=== PATIENT | female | born 1940 ===

== ENCOUNTER 2025-05-07 14:35 | Outpatient (AMB) | payer OTHER, SELFPAY ==
--- NOTE | 2025-05-07 14:40 | MHC.OFFVIS ---
Intake Visit Reasons: 6m AD Reinstatement Clerk Required: Yes Reinstatement Clerk Services: Reinstatement Clerk Offered & Declined (Family will translate) Accompanied by: Daughter Allergies No Known Allergies Allergy (Verified 05/07/25 14:45) Medication List - Last Reconciled 05/07/25 by Natalee Nesbitt CNP amlodipine 2.5 mg PO DAILY levothyroxine 75 mcg PO QAM losartan 25 mg PO DAILY omeprazole 20 mg PO QAM quetiapine 50 mg PO BID HPI Comments Details: 85-year-old woman with dementia and related behavioral disorder was here with her daughter. She was doing okay. Memory was about the same. She could be forgetful at times, but information sometimes came back to her after some time. She enjoyed watching [place] soap operas and was able to follow along. She was living alone, but her children stayed with her and prepared her meals. Walking with walker, no falls. Mood was so-so. Her son (who was her youngest child) passed about 1 month ago. Sleep was okay. PENDING SALE TO [facility] Medical History (Updated 05/07/25 @ 14:44 by Natalee Nesbitt CNP) Multifactorial gait disorder Alzheimer disease Review of Systems Const Denies chills, Denies daytime sleepiness, Denies difficulty sleeping, Denies fatigue, Denies fever(s), Denies frequent falls, Denies headache(s), Denies increased appetite, Denies poor appetite, Denies snoring, Denies weakness, Denies weight gain and Denies weight loss Eyes Denies loss of vision ENT Denies vertigo, Denies dizziness and Denies headache(s) Card Denies chest pain at rest, Denies chest pain with activity, Denies syncope, Denies leg edema and Denies palpitations Resp Denies snoring GI Denies constipation, Denies heartburn, Denies diarrhea and Denies nausea Denies urinary frequency, Denies urinary incontinence and Denies urinary urgency Musc Denies abnormal gait, Denies numbness and Denies tingling Skin/Breast Denies dry skin and Denies rash Neuro Denies abnormal gait, Denies vertigo, Denies dizziness, Denies syncope, Denies frequent falls, Denies headache(s), Denies lack of coordination, Denies loss of vision, Reports memory loss, Denies numbness, Denies restless legs, Denies seizure-like activity, Denies tingling, Denies paresthesias, Denies tremor(s) and Denies weakness Psych Denies anxiety, Denies depression, Reports auditory hallucinations, Reports memory loss, Reports visual hallucinations and Denies suicidal ideation Endo Denies fatigue and Denies palpitations Physical Exam Const Other: General Appearance:? normal, in no acute distress. Skin:? no rashes, no significant birthmarks. Heart:? S1, S2 normal, no murmurs. Lungs:? clear anteriorly and posteriorly. Extremities:? no edema. Psych:? alert, cooperative with exam. Neuro Other: Mental Status:?Alert and awake, understands and responds in [place]. She was able to tell me her age after a few minutes. She was able to tell me her birthday. Cranial Nerves:?Pupils are equal, round and reactive to light. External occular muscles are intact. Visual michel are full. Face is symmetrical. Facial sensations are normal. Tongue is midline. Palate elevates symmetrically. Shoulder shrugging is normal. Hearing to bedside conversation is normal. Motor Examination:?DTRs trace. Sensory Exam:?....? Coordination:?No ataxia,?no titubation.? Gait Exam: Stooped posture with walker. Cerebellar Signs:?[id number] is okay. Extrapyramidal System:?No tremor, rigidity with normal facial expressions.? Pronator Drift:?Not present.? Involuntary Movements:?Fine tremors of the outstretched hands. Speech:?Normal.? Assessment & Plan Assessment & Plan (1) Alzheimer disease: Code(s): G30.9 - Alzheimer's disease, unspecified; F02.80 - Dementia in other diseases classified elsewhere, unspecified severity, without behavioral disturbance, psychotic disturbance, mood disturbance, and anxiety Category: Medical Plan: Continue quetiapine 50mg 1 tablet in the evening and 1 tablet at bedtime. (2) Dementia with behavioral disturbance: Code(s): F03.918 - Unspecified dementia, unspecified severity, with other behavioral disturbance Category: Medical (3) Multifactorial gait disorder: Code(s): R26.89 - Other abnormalities of gait and mobility Category: Medical Plan: Continue to use walker. Plan . Medications: New quetiapine 50 mg orally 1 tablet in evening and 1 tablet at bedtime; 60 tabs 5RF 30 days Coding Level of Care Code Est Pt Level 4 (75097) Diagnoses Alzheimer disease G30.9; F02.80 Dementia with behavioral disturbance F03.918 Multifactorial gait disorder R26.89
--- OUTSIDE RECORDS SUMMARY | 2025-05-07 17:51 | XMS_ITS | Clinical Summary ---
Author Organization 175 [facility] Address [address] [place] [address] Phone Care Team Providers Care Vegetable Cook Name Role Phone Haleigh Delacruz MD Primary Care Pr ovider Allergies Active Allergy Reactions Criticality Noted Date Comments House Dust 01/25/2023 Losartan Numbness 03/13/2025 In her mouth Other 01/25/2023 SEASONAL ALLERGIES Medications QUEtiapine (SEROquel) 25 mg tablet Take 2 Tablets by mouth at bedtime. 4 Active brimonidine (ALPHAGAN) 0.2 % ophthalmic solution 1 Drop 3 times daily. Active polyvinyl alcohol (ARTIFICIAL TEARS) 1.4 % ophthalmic solution Place 1 Drop into both eyes as needed (dry eye) for up to 30 days. 8 Active ammonium lactate (LAC-HYDRIN) 12 % lotionIndications: Dry skin Apply topically 1 (one) time each day if needed for dry skin. 400 g 1 4 Active ketoconazole (NIZORAL) 2 % cream Apply topically 1 (one) time each day. 60 g 2 5 Active levothyroxine (SYNTHROID, LEVOTHROID) 75 mcg tabletIndications: Acquired hypothyroidism Take 1 tablet (75 mcg total) by mouth 1 (one) time each day before breakfast. 90 each 1 5 05/27/20 25 Active amLODIPine (NORVASC) 2.5 mg tablet Take 1 tablet (2.5 mg total) by mouth 1 (one) time each day. 90 tablet 1 5 Active naproxen (NAPROSYN) 250 mg tablet Take 1 tablet (250 mg total) by mouth 1 (one) time each day if needed for mild pain. 90 tablet 5 Active omeprazole (PriLOSEC) [address] capsule TOME 1 CAPSULA POR VIA ORAL TODOS [place] TAKE 30 MINUTES BEFORE BREAKFAST ON EMPTY STOMACH 30 capsule 5 5 Active Active Problems Problem Noted Date Diagnosed Date Primary osteoarthritis of right shoulder 025 Normocytic anemia 09/16/2024 Assessment & Plan (04/24/2025 1:09 PM EDT): Will update labs Likely due to her chronic disease Orders: CBC and differential; Future Ferritin; Future Iron and TIBC; Future Vitamin B12; Future Insomnia due to medical condition 08/23/2024 Assessment & Plan (08/23/2024 2:49 PM EST): Well controlled. 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 Do not crush or chew. Anxiety 08/08/2023 Glaucoma 08/08/2023 Rotator cuff disorder, left 12/16/2021 Lumbar degenerative disc disease 12/16/2021 Vitamin D deficiency 01/18/2018 Assessment & Plan (08/23/2024 2:49 PM EST): Continue vitamin D daily Prediabetes 07/01/2014 Assessment & Plan (08/23/2024 2:49 PM EST): Last A1c was 5.9% BMI is normal Orders: Comprehensive metabolic panel; Future Hemoglobin A1c; Future HTN (hypertension) 06/24/2014 Assessment & Plan (04/24/2025 1:09 PM EDT): Well controlled. Continue amlodipine 2.5mg daily Assessment & Plan (08/23/2024 2:49 PM EST): Stable. Continue losartan Orders: losartan (COZAAR) 25 mg tablet; Take 1 tablet (25 mg total) by mouth 1 (one) time each day. TAKE 1 TABLET BY MOUTH DAILY Hyperlipidemia 06/24/2014 Assessment & Plan (08/23/2024 2:49 PM EST): No longer on statin. See HPI. Will update labs Orders: Lipid panel with reflex to direct LDL; Future Hemoglobin A1c; Future Hypothyroidism 06/24/2014 Assessment & Plan (08/23/2024 2:49 PM EST): Last TSH wnl in Jul 2023. Will update labs. Continue current dose of levothyroxine Orders: Thyroid stimulating hormone with reflex to free t4 and free t3; Future levothyroxine (SYNTHROID, LEVOTHROID) 75 mcg tablet; Take 1 tablet (75 mcg total) by mouth 1 (one) time each day before breakfast. Osteoarthritis 06/24/2014 Encounters Date Type Department Care Team Description 04/25/2025 Telephone Adult Medicine [address] [phone] Kasie Loredo MA 04/24/2025 1:27 PM EDT - 04/24/2025 11:59 PM EDT Hospital Encounter [address] [phone] Chronic right shoulder pain Discharge Disposition: Home or Self Care 04/24/2025 12:30 PM EDT Office Visit Adult Medicine [address] [phone] Haleigh Delacruz MD Primary hypertension (Primary Dx); Need for tetanus, diphtheria, and acellular pertussis (Tdap) vaccine; Chronic right shoulder pain; Normocytic anemia 03/13/2025 4:00 PM EDT Office Visit Adult Medicine [address] [phone] Sonia Marinelli PA Primary hypertension (Primary Dx); Hypothyroidism, unspecified type; Mixed hyperlipidemia; Prediabetes; Insomnia due to medical condition; 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 ([facility] V24, [facility] V28); Anxiety; Degeneration of intervertebral disc of lumbar region with discogenic back pain and lower extremity pain 03/13/[address] [phone] Sonia Marinelli PA 02/12/2025 3:00 PM EDT Office Visit Orthopedic Surgery - [address] [phone] Tamir Shabazz DPM Pain in both feet (Primary Dx); Arthritis of both feet; PAD (peripheral artery disease) ([facility] V24); Difficulty walking; Ulcer of toe of right foot, with fat layer exposed ([facility] V24, [facility] V28) from Last 3 Months Immunizations Name Administration Dates Next Due COVID-19 Seasonal (Novavax) 12yo and older 05/28/2024 Influenza Quadravalent, 0.5m l (Fluad) 65yo and older 05/28/2024,05/31/2023,08/16/2022 Influenza trivalent, 0.5mL ( Fluad) 65yo and older 07/12/2017 Influenza trivalent, 0.5mL ( Fluzone High-dose) 65yo and older 05/31/2023,06/15/2021,05/20/2020,08/01,07/26/2018,07/30/2016,07/12/2015 Influenza trivalent, with pr eservative (Fluzone; Afluria) 6mo and older 06/18/2014,08/04/2010 Moderna SARS-CoV-2 COVID-19, mRNA, LNP-S, preservative free 08/25/2021 Pneumococcal conjugate 13 va lent (Prevnar 13, PCV13) 2mo and older 01/08/2016 Pneumococcal polysaccharide 23 valent (Pneumovax 23) 2yo and older 12/08/2014 Tdap Tetanus diptheria acell ular pertussis (Boostrix; Adacel) 7yo and older 04/24/2025,12/08/2014 Zoster Live 12/25/2014 Surgical History Surgery Date Site/Laterality Comments OOPHORECTOMY PROCEDURE: HISTORICAL OOPHORECTOMY CHOLECYSTECTOMY PROCEDURE: HISTORICAL CHOLECYSTECTOMY Medical History Medical History Date Comments Vitamin D deficiency 01/18/2018 DX:Vitamin D deficiency Hypertension Osteoarthritis of right knee Family History Medical History Relation Name Comments Hypertension Brother Prostate cancer Father Diabetes Mother Other: family his of diabetes Other Hypertension Sister 1 Relation Name Status Comments Brother Father Mother Other Sister 1 Sister 2 Alive Social History Tobacco Use Types Packs/Day Years Used Date Smoking Tobacco: Former Smokeless Tobacco: Never Alcohol Use Standard Drinks/Week Comments No 0 (1 standard drink = 0.6 oz pur e alcohol) Comments Unknown Sex and Gender Information Value Date Recorded Sex Assigned at Not on file Legal Sex Female 5:07 PM EST Gender Identity Not on file Sexual Orientation Not on file Obstetrics History Last Filed Vital Signs Vital Sign Reading Time Taken Comments Blood Pressure 124/68 04/24/2025 12:21 PM EDT Pulse 66 04/24/2025 12:21 PM EDT Temperature 36.4 C (97.5 F) 04/24/2025 12:21 PM EDT Respiratory Rate 14 03/13/2025 3:18 PM EDT Oxygen Saturation 97% 03/13/2025 3:18 PM EDT Inhaled Oxygen Concentration - - Weight 44.9 kg (99 lb) 04/24/2025 12:21 PM EDT Height 137 cm (4' 5.94 ) 04/24/2025 12:21 PM EDT Body Mass Index 23.93 04/24/2025 12:21 PM EDT Plan of Treatment Upcoming Encounters Date Type Department Care Team (Late st Contact Info) Description 05/15/2025 1:45 PM EDT Office Visit Orthopedic Surgery - [place] [address] [phone] Tamir Shabazz, KEISHA 175 [facility] Naun [address] [place] [phone] 09/03/2025 1:30 PM EST Office Visit Adult Medicine [facility] [address] [place], [place] [phone] Haleigh Delacruz MD [address] [place], [place] 09/10/2025 3:00 PM EST Office Visit Gastroenterology - [place] [address] 175 [facility] [address] [place] [phone] Domonique Sinclair, STEVE [address] [facility] [address] [place] [address] Health Maintenance Due Date Last Done Comments Zoster Vaccines (2 of 3) 02/19/2015 12/25/2014 RSV Immunization Adult Patients (1 - 1-dose 75+ series) 2017 Social Influencers of Health Screening 07/27/2022 Depression Screening 08/28/2024 Falls Risk Assessment 01/10/2025 01/11/2024 Medicare Annual Wellness Visit 01/10/2025 01/11/2024 COVID-19 Vaccine ( season) 2025 05/28/2024, 08/25/2021, 12/29/2020, Additional history exists Influenza Vaccine (#1) 2025 , 05/31/2023, 05/31/2023, Additional history exists Hypertension/CHF/CAD Annual BMP Blood Test 03/13/2026 03/13/2025, 09/09/2024, 01/08/2024, Additional history exists Cholesterol Screening (Lipid Panel) 09/09/2029 09/09/2024, 01/08/2024, 01/08/2024 Osteoporosis Screening (Bone Density Screening) 12/03/2029 12/03/2024, 11/05/2019 DTaP,Tdap,and Td Vaccines (3 - Td or Tdap) 04/24/2035 04/24/2025, 12/08/2014 Pneumococcal Vaccine: 50+ Years Completed 01/08/2016, 12/08/2014 HIB Vaccines Aged Out No longer eligi ble based on patient's age to complete this topic HPV Vaccines Aged Out No longer eligi ble based on patient's age to complete this topic Hepatitis A Vaccines Aged Out No long er eligible based on patient's age to complete this topic Hepatitis B Vaccines Aged Out No long er eligible based on patient's age to complete this topic IPV Vaccines Aged Out No longer eligi ble based on patient's age to complete this topic MMR Vaccines Aged Out No longer eligi ble based on patient's age to complete this topic Meningococcal ACWY Vaccine Aged Out N o longer eligible based on patient's age to complete this topic Meningococcal B Vaccine Aged Out No l onger eligible based on patient's age to complete this topic RSV Immunization Patients Under 20 months Aged Out No longer eligible based on patient's age to complete this topic Varicella Vaccines Aged Out No longer eligible based on patient's age to complete this topic Procedures Procedure Name Priority Date/Time Associated Diagnosis Comments XR SHOULDER 2+ VIEWS RIGHT Routine 04/24/2025 1:36 PM EDT Chronic right shoulder pain CBC WITH AUTO DIFFERENTIAL Routine 04/24/2025 1:24 PM EDT Normocytic anemia CBC AND DIFFERENTIAL Routine 04/24/2025 1:24 PM EDT Normocytic anemia FERRITIN Routine 04/24/2025 1:24 PM EDT Normocytic anemia IRON AND TIBC Routine 04/24/2025 1:24 PM EDT Normocytic anemia VITAMIN B12 Routine 04/24/2025 1:24 PM EDT Normocytic anemia BASIC METABOLIC PANEL Routine 03/13/2025 3:55 PM EDT Primary hypertension HEMOGLOBIN A1C Routine 03/13/2025 3:55 PM EDT Prediabetes THYROID STIMULATING HORMONE WITH REFLEX TO FREE T4 AND FREE T3 Routine 03/13/2025 3:55 PM EDT Hypothyroidism, unspecified type BD BONE DENSITY DXA AXIAL SKELETON Routine 12/03/2024 2:25 PM EDT Screening for osteoporosis LIPID PANEL WITH REFLEX TO DIRECT LDL Routine 09/09/2024 10:42 AM EST Mixed hyperlipidemia from Last 3 Months or Most Recently Relevant to Health Maintenance Results * XR Shoulder 2+ Views Right (04/24/2025 1:36 PM EDT) Anatomical Region Laterality Modality Upper Extremities, Shoulder Right Radi ographic Imaging 04/25/2025 1:36 PM EDT Impressions 04/25/2025 1:40 PM EDT Mildly limited exam. Mild degenerative changes. POS - [id number] -------- FINAL REPORT -------- Dictated By: Chikis Watkins Dictated Date: 04/25/2025 13:36 ET Assigned Physician: Chikis Watkins Reviewed and Electronically Signed By: Chikis Watkins Signed Date: 04/25/2025 13:40 ET Workstation ID: [id number] Transcribed By: Self Edit Transcribed Date: 04/25/2025 13:36 ET Narrative 04/25/2025 1:40 PM EDT EXAM: Right shoulder x-ray HISTORY: Right shoulder pain. COMPARISON: 11/02/2018 FINDINGS: 4 views performed. Limitations in patient positioning due to patient kyphosis. Images obtained are the best possible. Mild degenerative changes appear present at the acromioclavicular joint. No appreciable degenerative changes at the glenohumeral joint. Apparent narrowing of the shoulder outlet. Spurring and cystic change involving the greater tuberosity. No acute fracture or dislocation detected. No destructive bone lesion. No soft tissue calcifications. Procedure Note Chikis Watkins MD - 04/25/2025 EXAM: Right shoulder x-ray HISTORY: Right shoulder pain. COMPARISON: 11/02/2018 FINDINGS: 4 views performed. Limitations in patient positioning due to patient kyphosis. Imagesobtained are the best possible. Mild degenerative changes appear present at the acromioclavicular joint.No appreciable degenerative changes at the glenohumeral joint. Apparentnarrowing of the shoulder outlet. Spurring and cystic change involving thegreater tuberosity. No acute fracture or dislocation detected. Nodestructive bone lesion. No soft tissue calcifications. IMPRESSION: Mildly limited exam. Mild degenerative changes. POS - [id number] -------- FINAL REPORT -------- Dictated By: Chikis Watkins Dictated Date: 04/25/2025 13:36 ET Assigned Physician: Chikis Watkins Reviewed and Electronically Signed By: Chikis Watkins Signed Date: 04/25/2025 13:40 ET Workstation ID: [id number] Transcribed By: Self Edit Transcribed Date: 04/25/2025 13:36 ET Haleigh Delacruz MD IMG XR PROCEDURE S Final Result * (ABNORMAL) CBC auto differential (04/24/2025 1:24 PM EDT) WBC 5.6 4.8 - 10.8 K/mcL LAB HEMETOLOGY METHOD 04/24/2025 4:50 PM EDT [facility] RBC 4.00 3.80 - 4.80 M/mcL LAB HEMETOLOGY METHOD 04/24/2025 4:50 PM EDT [facility] Hemoglobin 11.2(L) 11.5 - 16.0 g/dL LAB HEMETOLOGY METHOD 04/24/2025 4:50 PM EDT [facility] Hematocrit 36.5 35.0 - 47.0 % LAB HEMETOLOGY METHOD 04/24/2025 4:50 PM EDT [facility] MCV 90.3 79.0 - 98.0 FL LAB HEMETOLOGY METHOD 04/24/2025 4:50 PM EDT [facility] MCH 27.7 27.0 - 32.0 pcg LAB HEMETOLOGY METHOD 04/24/2025 4:50 PM EDT [facility] MCHC 30.7(L) 32.0 - 37.0 g/dL LAB HEMETOLOGY METHOD 04/24/2025 4:50 PM EDT [facility] RDW 13.9 11.0 - 15.0 % LAB HEMETOLOGY METHOD 04/24/2025 4:50 PM EDT [facility] Platelets 211 130 - 400 K/mcL LAB HEMETOLOGY METHOD 04/24/2025 4:50 PM EDT [facility] MPV 11.5(H) 7.0 - 11.0 FL LAB HEMETOLOGY METHOD 04/24/2025 4:50 PM EDT [facility] NRBC 0.0 <1.0 % LAB HEMETOLOGY METHOD 04/24/2025 4:50 PM EDT [facility] NRBC Absolute 0.00 <0.10 K/mcL LAB HEMETOLOGY METHOD 04/24/2025 4:50 PM EDT [facility] Neutrophils Relative 53.8 % LAB HEMETOLOGY METHOD 04/24/2025 4:50 PM EDT [facility] Lymphocytes Relative 34.4 % LAB HEMETOLOGY METHOD 04/24/2025 4:50 PM EDT [facility] Monocytes Relative 10.3 % LAB HEMETOLOGY METHOD 04/24/2025 4:50 PM EDT [facility] Eosinophils Relative 1.1 % LAB HEMETOLOGY METHOD 04/24/2025 4:50 PM EDT [facility] Basophils Relative 0.2 % LAB HEMETOLOGY METHOD 04/24/2025 4:50 PM EDT [facility] Immature Granulocytes Relative 0.2 % LAB HEMETOLOGY METHOD 04/24/2025 4:50 PM EDT [facility] Neutrophils Absolute 2.99 1.50 - 7.00 K/mcL LAB HEMETOLOGY METHOD 04/24/2025 4:50 PM EDT [facility] Lymphocytes Absolute 1.91 1.00 - 5.00 K/mcL LAB HEMETOLOGY METHOD 04/24/2025 4:50 PM EDT [facility] Monocytes Absolute 0.57 0.20 - 1.00 K/[facility] LAB HEMETOLOGY METHOD 04/24/2025 4:50 PM EDT [facility] Eosinophils Absolute 0.06 0.00 - 0.50 K/[facility] LAB HEMETOLOGY METHOD 04/24/2025 4:50 PM EDT [facility] Basophils Absolute 0.01 0.00 - 0.20 K/[facility] LAB HEMETOLOGY METHOD 04/24/2025 4:50 PM EDT [facility] Immature Granulocytes Absolute 0.01 0.00 - 0.03 K/[facility] LAB HEMETOLOGY METHOD 04/24/2025 4:50 PM EDT [facility] Blood Venous blood specimen / Unknown Venipuncture / Unknown 04/24/2025 1:24 PM EDT 04/24/2025 1:24 PM EDT Haleigh Delacruz MD LAB BLOOD ORDERA BLES Final Result [facility] [address] [place] [address], * Iron and TIBC (04/24/2025 1:24 PM EDT) Iron 60 40 - 150 mcg/dL LAB CHEMISTRY METHOD 04/24/2025 5:43 PM EDT [facility] TIBC 331 250 - 450 mcg/dL LAB CHEMISTRY METHOD 04/24/2025 5:43 PM EDT [facility] Iron Saturation 18 15 - 50 % LAB CHEMISTRY METHOD 04/24/2025 5:43 PM EDT [facility] Blood Venous blood specimen / Unknown Venipuncture / Unknown 04/24/2025 1:24 PM EDT 04/24/2025 1:24 PM EDT Haleigh Delacruz MD LAB BLOOD ORDERA BLES Final Result [facility] [address] [place] [address], [place] [phone] * Ferritin (04/24/2025 1:24 PM EDT) [facility] Ferritin 20 8 - 252 ng/mL LAB CHEMISTRY METHOD 04/24/2025 5:43 PM EDT [facility] Blood Venous blood specimen / Unknown Venipuncture / Unknown 04/24/2025 1:24 PM EDT 04/24/2025 1:24 PM EDT Haleigh Delacruz MD LAB BLOOD ORDERA BLES Final Result Performing Organization Address City/[facility]/ZIP Co de Phone Number [facility] [address] [place] [address], [place] [phone] * Vitamin B12 (04/24/2025 1:24 PM EDT) [facility] Vitamin B-12 408 250 - 900 pcg/mL LAB CHEMISTRY METHOD 04/24/2025 5:43 PM EDT [facility] Blood Venous blood specimen / Unknown Venipuncture / Unknown 04/24/2025 1:24 PM EDT 04/24/2025 1:24 PM EDT Haleigh Delacruz MD LAB BLOOD ORDERA BLES Final Result Performing Organization Address City/[facility]/ZIP Co de Phone Number [facility] [address] [place] [address], [place] [phone] * Thyroid stimulating hormone with reflex to free t4 and free t3 (03/13/2025 3:55 PM EDT) [facility] TSH 0.98 0.40 - 4.00 mcIU/mL LAB CHEMISTRY METHOD 03/13/2025 7:37 PM EDT [facility] Blood Venous blood specimen / Unknown Venipuncture / Unknown 03/13/2025 3:55 PM EDT 03/13/2025 3:55 PM EDT us Sonia SERRANO LAB BLOOD ORDERABLES Final Re sult Performing Organization Address [facility]/ZIP Co de Phone Number [facility] [address] [place] [address], [place] [phone] * Hemoglobin A1c (03/13/2025 3:55 PM EDT) [facility] Hemoglobin A1C 5.9 <6.5 % LAB CHEMISTRY METHOD 03/13/2025 9:42 PM EDT [facility] Mean Bld Glu Estim. 123 mg/dL LAB CHEMISTRY METHOD 03/13/2025 9:42 PM EDT [facility] Blood Venous blood specimen / Unknown Venipuncture / Unknown 03/13/2025 3:55 PM EDT 03/13/2025 3:55 PM EDT us Sonia SERRANO LAB BLOOD ORDERABLES Final Re sult Performing Organization Address [facility]/ZIP Co de Phone Number [facility] [address] [place] [address], [place] [phone] * (ABNORMAL) Basic metabolic panel (03/13/2025 3:55 PM EDT) [facility] Sodium 141 133 - 145 mmol/L LAB CHEMISTRY METHOD 03/13/2025 7:13 PM EDT [facility] Potassium 4.5 3.5 - 5.5 mmol/L LAB CHEMISTRY METHOD 03/13/2025 7:13 PM EDT [facility] Chloride 106 96 - 110 mmol/L LAB CHEMISTRY METHOD 03/13/2025 7:13 PM EDT [facility] CO2 32 21 - 32 mmol/L LAB CHEMISTRY METHOD 03/13/2025 7:13 PM EDT [facility] Anion Gap 3 3 - 11 LAB CHEMISTRY METHOD 03/13[facility]2025 7[facility] Glucose 83 70 - 100 mg/dL LAB CHEMISTRY METHOD 03/13/2025 7:13 PM [facility] BUN 38(H) 5 - 25 mg/dL LAB CHEMISTRY METHOD 03/13/2025 7:13 PM T [facility] Creatinine 0.72 0.50 - 1.10 mg/dL LAB CHEMISTRY METHOD 03/13/2025 7:13 [facility] eGFR 83 >=60 mL/min/1. 73m2 LAB CHEMISTRY METHOD 03/13/2025 7:13 PM EDT [facility] Comment:Calculation based on the Chronic Kidney Disease Epidemiology Collaboration (CKD-EPI) equation refit without adjustment for race. BUN/Creatinine Ratio 52.8 LAB CHEMISTRY METHOD 03/13/2025 7:13 PM T [facility] Calcium 9.4 8.5 - 10.5 mg/dL LAB CHEMISTRY METHOD 03/13/2025 7:13 PM [facility] Blood Venous blood specimen / Unknown Venipuncture / Unknown 03/13/2025 3:55 PM EDT 03/13/2025 3:55 PM EDT us Sonia SERRANO LAB BLOOD ORDERABLES Final Re sult [facility] [address] [place] [address], * BD Bone Density DXA Axial Skeleton (12/03/2024 2:25 PM EDT) Anatomical Region Laterality Modality Wrist, Hip, L-spine Bone Densito metry 12/03/2024 4:46 PM EDT Impressions 12/03/2024 4:49 PM EDT Normal bone mineral density by WHO criteria. [facility] Department of Internal Medicine recommends using National Osteoporosis Foundation (NOF) guidelines in treatment decisions related to osteoporosis. NOF guidelines suggest considering treatment for postmenopausal women and men aged 50 or older presenting with the following: History of hip or vertebral fracture. T-score = -2.5 (DXA) at the femoral neck, total hip, or spine, after appropriate evaluation to exclude secondary causes. Low bone mass (T-score between -1.0 and -2.5 at the femoral neck or spine) AND a 10-year probability of a hip fracture = 3% OR a 10-year probability of a major osteoporosis-related fracture = 20% based on the [place]-adapted WHO algorithm Please note that all treatment decisions require clinical judgment and consideration of individual patient factors, including patient preferences, co-morbidities, previous drug use, risk factors not captured in the FRAX model (e.g., frailty, falls, vitamin D deficiency, increased bone turnover, interval significant decline in bone density) and possible under- or over-estimation of fracture risk by FRAX. Optional alternative screening schedule based on paty Purdy., [facility] [place] September 15, 2011 for patients with osteopenia (based on hip BMD T-score) is as follows: * advanced osteopenia (T scores -2.00 to -2.49), BMD testing every year * moderate osteopenia (T scores -1.50 to -1.99), BMD testing every 5 years mild osteopenia or normal BMD (T scores -1.50 and higher), BMD testing every 15 years -------- FINAL REPORT -------- Dictated By: Chikis Watkins Dictated Date: 12/03/2024 16:46 ET Assigned Physician: Chikis Watkins Reviewed and Electronically Signed By: Chikis Watkins Signed Date: 12/03/2024 16:49 ET Workstation ID: [id number] Transcribed By: Self Edit Transcribed Date: 12/03/2024 16:46 ET Narrative 12/03/2024 4:49 PM EDT BONE DENSITY SCAN (DEXA): FINDINGS: Lumbar Spine T-score is 0.7. (SD relative to 20-29 y/o adult) Z-score is 3.5. (SD relative to age matched peers) This is considered normal by WHO criteria. Left Hip T-score is -0.5. Z-score is 1.7. This is considered normal by WHO criteria. Comparison exam(s): 11/05/2019. 2.9% loss of lumbar spine bone mineral density and 4.1% loss of left hip bone mineral density, both statistically significant at the 95% confidence level. Lateral survey view of the thoracolumbar spine shows no significant compression deformities. Procedure Note Chikis Watkins MD - 12/03/2024 BONE DENSITY SCAN (DEXA): FINDINGS: Lumbar Spine T-score is 0.7. (SD relative to 20-29 y/o adult) Z-score is 3.5. (SD relative to age matched peers) This is considered normal by WHO criteria. Left Hip T-score is -0.5. Z-score is 1.7. This is considered normal by WHO criteria. Comparison exam(s): 11/05/2019. 2.9% loss of lumbar spine bone mineraldensity and 4.1% loss of left hip bone mineral density, both statisticallysignificant at the 95% confidence level. Lateral survey view of the thoracolumbar spine shows no significantcompression deformities. IMPRESSION: Normal bone mineral density by WHO criteria. [facility] Department of Internal Medicine recommendsusing National Osteoporosis Foundation (NOF) guidelines in treatmentdecisions related to osteoporosis. NOF guidelines suggest consideringtreatment for postmenopausal women and men aged 50 or older presentingwith the following: History of hip or vertebral fracture. T-score = -2.5 (DXA) at the femoral neck, total hip, or spine, afterappropriate evaluation to exclude secondary causes. Low bone mass (T-score between -1.0 and -2.5 at the femoral neck or spine)AND a 10-year probability of a hip fracture = 3% OR a 10-year probabilityof a major osteoporosis-related fracture = 20% based on the [place]-adapted WHOalgorithm Please note that all treatment decisions require clinical judgment andconsideration of individual patient factors, including patientpreferences, co-morbidities, previous drug use, risk factors not capturedin the FRAX model (e.g., frailty, falls, vitamin D deficiency, increasedbone turnover, interval significant decline in bone density) and possibleunder- or over-estimation of fracture risk by FRAX. Optional alternative screening schedule based on sandra Purdy al., NEJMJanuary 2011 for patients with osteopenia (based on hip BMD T-score)is as follows: * advanced osteopenia (T scores -2.00 to -2.49), BMD testing every year * moderate osteopenia (T scores -1.50 to -1.99), BMD testing every 5years mild osteopenia or normal BMD (T scores -1.50 and higher), BMD testingevery 15 years -------- FINAL REPORT -------- Dictated By: Chikis Watkins Dictated Date: 12/03/2024 16:46 ET Assigned Physician: Chikis Watkins Reviewed and Electronically Signed By: Chikis Watkins Signed Date: 12/03/2024 16:49 ET Workstation ID: [id number] Transcribed By: Self Edit Transcribed Date: 12/03/2024 16:46 ET Haleigh Delacruz MD IM DXA PROCEDUR ES Final Result * Lipid panel with reflex to direct LDL (09/09/2024 10:42 AM EST) Cholesterol 156 0 - 200 mg/dL LAB CHEMISTRY METHOD 09/09/2024 12:57 PM [facility] Triglycerides 41 0 - 150 mg/dL LAB CHEMISTRY METHOD 09/09/2024 12:57 PM [facility] HDL 70 >=40 mg/dL LAB CHEMISTRY METHOD 09/09/2024 12:57 PM [facility] LDL Calculated 78 0 - 100 mg/dL LAB CHEMISTRY METHOD 09/09/2024 12:57 PM [facility] VLDL Cholesterol Jono 8.2 mg/dL LAB CHEMISTRY METHOD 09/09/2024 12:57 PM [facility] Non HDL Chol. (LDL+VLDL) 86 <145 mg/dL LAB CHEMISTRY METHOD 09/09/2024 12:57 PM EST [facility] Chol/HDL Ratio 2.2 0.0 - 4.4 LAB CHEMISTRY METHOD 09/09/2024 12:57 PM EST [facility] Blood Venous blood specimen / Unknown Venipuncture / Unknown 09/09/2024 10:42 AM EST 09/09/2024 10:42 AM EST Haleigh Delacruz MD LAB BLOOD ORDERA BLES Final Result [facility] [address] [place] [address], from Last 3 Months or Most Recently Relevant to Health Maintenance Insurance [facility] Member Subscriber Plan / Payer (Ef fective 2018-Present) Name:Michelle Teixeira Relation to Subscriber:Self Name:Abby Teixeira Payer ID:[id number] Group ID:[id number] Type:Not on file Address: [address] [facility] [place] [address] Care Teams Vegetable Cook Relationship Specialty Start Date End Date [place] [address] PCP - General 06/13/23
--- OUTSIDE RECORDS SUMMARY | 2025-05-07 17:51 | XMS_ITS | Patient Health Record ---
[facility] Organization [facility] Address [address] [place] [address] Care Team Providers Care Intermediate Designer Name Role Phone Devang Dangelo MD Primary Care Provider Unavailflorecita e Constantin Adhikari Unavailable [phone] Naz Menchaca Unavailable Penny vailable Reason For Referral No Information Medications Medication SIG (Take, Route, Frequency, Duration) Notes Start Date End Date Status Tylenol 325 MG 1 tablet as needed Orally every 6 hrs; Duration: 05 days Active Aspirin 81 MG 1 tablet Orally Once a day; Duration: 30 day(s) Active CeleBREX 200 MG 1 capsule Orally Onc e a day; Duration: 30 day(s) Active Ferrous Sulfate 325 (65 Fe) MG 1 tablet Orally Once a day; Duration: 30 day(s) Active Levothyroxine Sodium 88 MCG 1 tablet on an empty stomach in the morning Orally Once a day; Duration: 30 day(s) Active Lisinopril 40 MG 1 tablet Orally Once a day; Duration: 30 day(s) Active PARoxetine HCl 20 MG 1 tablet in the mor godfrey Orally Once a day; Duration: 30 day(s) Active ProAir HFA 108 (90 Base) MCG/ACT 2 puffs as needed Inhalation every 4 hrs Active Simvastatin 20 MG 1 tablet in the even ing Orally Once a day; Duration: 30 day(s) Active Extra-Depth Diabetic Shoes with 3 Pair Custom heat-molded multi-density innersoles . 1pair shoes/3sets inserts . .; Duration: 1 year 07/16/2012 Active Social History Tobacco use other than smoking: Question Answer Notes Are you an other tobacco user? No Problems Problem Type SNOMED Code ICD Code Onset Dates Problem Status W/U Status Risk Notes Problem Type II diabetes mellitus without complication (276624748) Diabetic - NIDDM (250.00) Active confirmed Problem Hammer toe (300833437) Hammer toe (735.4) Active confirmed Problem Metatarsalgia (43441179) Metatarsalgia (726.70) Active confirmed Problem Onychomycosis (635778835) Onychomycosis (110.1) Active confirmed Problem Pain in limb (08000640) Pain in Limb (729.5) Active confirmed Problem Foot ulcer (96261568) Ulcer of Other Part of Foot (707.15) Active confirmed Plan Of Treatment Pending Test Test Name Order Date [id number] NAIL, 6 OR MORE 10/30/2013 92066- Debride <25 sq cm 10/30/2013 Insurance Providers Payer Name Payer Address Payer Phone Subscriber Number Group Number Insured Name Patient Relationship to Insured Coverage Start Date Coverage End Date Medicare [employer] [address] [place] [address] [id number] Abby Teixeira Self - patient is the insured Medical (General) History Medical History History ICD Code Anxiety disorder asthma back, hip, knee pain cataracts diabetic headaches/migraines hypertension chronic sinusitis cholesterol thyroid disorder Surgical History Surgery Date(Month/Year) cholecystectomy cataract surgery - right ovarian surgery
== END 2025-05-07 15:02 | disposition home or self-care (01) ==
LOC: HO.HSM 14:36
PROVIDERS: PCP Family Medicine; Referring Provider Family Medicine; Visit Provider Registered Nurse
DX: G30.9 Alzheimer's disease, unspecified (principal); F02.80 Dementia in other diseases classified elsewhere, unspecified severity, without behavioral disturbance, psychotic disturbance, mood disturbance, and anxiety; R26.89 Other abnormalities of gait and mobility
CPT/HCPCS: 99214

== ENCOUNTER → 2025-05-07 14:35 | Outpatient (BNVA) | payer OTHER, SELFPAY | PROVIDERS: PCP Family Medicine; Referring Provider Family Medicine; Visit Provider Registered Nurse | DX: G30.9 Alzheimer's disease, unspecified (principal); F02.818 Dementia in other diseases classified elsewhere, unspecified severity, with other behavioral disturbance; R26.89 Other abnormalities of gait and mobility | CPT/HCPCS: 99212 ==